=== PATIENT | male | born 1990 | race African-American/Black ===

== ENCOUNTER → 2018-07-22 17:55 | Emergency (ER) | payer SELFPAY ==
[~2018-07-22 17:55] MED LIST: Amoxicillin/Clavulanate TAB* 875 MG PO ONE; Azithromycin TAB* 250 MG PO ONE; Ciproflox/Dexameth OTIC.SUSP* 7.5 ML BTL LEFT EAR ONE; Ibuprofen TAB* 600 MG PO ONE; Iohexol 300* (CONTRAST) 10 ML SDV IV ONE
[2018-07-22 21:09] LABS: Hematocrit 42 % (42-52); Hemoglobin 13.6 g/dl (14.0-18.0); Mean Corpuscular HGB Conc 33 g/dl (31-36); Mean Corpuscular Hemoglobin 24 pg (27-31); Mean Platelet Volume 6.8 fL (7.4-10.4); Platelet Count 305 10^3/ul (150-450); Red Blood Count 5.67 10^6/ul (4.00-5.40); Red Cell Distribution Width 15 % (10.5-15); White Blood Count 11.5 10^3/ul (3.5-10.8)
[2018-07-22 21:18] LABS: EGFR Non-African American 95.1 (>60)
[2018-07-22 21:36] LABS: ABS Basophils 0.1 10^3/ul (0-0.2); ABS Eosinophils 0.3 10^3/ul (0-0.6); ABS Lymphocytes 1.9 10^3/ul (1.0-4.8); ABS Monocytes 1.3 10^3/ul (0-0.8); ABS Neutrophils 7.9 10^3/ul (1.5-7.7); ABS Nucleated RBC 0 10^3/ul; Eosinophil % 2.7 % (0-6); Lymphocyte % 16.1 % (25-47); Mean Corpuscular Volume 74 fL (80-94); Nucleated Red Blood Cells % 0.1
--- NOTE | 2018-07-22 22:23 | ED ---
Throat Pain/Nasal Congestion - HPI Summary HPI Summary: Patient complains of left ear pain 2 weeks. Pain described as intermittent, associated with headache and redness and swelling behind ear. Denies fever, cough, sore throat, CP, SOB, neck stiffness, N/V/D, abdominal pain, change in urine, change in BM. Medical history is none. No antipyretic today. - History of Current Complaint Chief Complaint: EDEarPain Time Seen by Provider: 07/22/18 19:45 Hx Obtained From: Patient Onset/Duration: Gradual Onset, Lasting Weeks Severity: Moderate Associated Signs And Symptoms: Positive: Negative Cough: None - Allergies/Home Medications Allergies/Adverse Reactions: Allergies Allergy/AdvReac Type Severity Reaction Status Date / Time No Known Allergies Allergy Verified 07/22/18 19:39 PMH/Surg Hx/FS Hx/Imm Hx Endocrine/Hematology History: Denies: Hx Diabetes Cardiovascular History: Denies: Hx Hypertension History: Denies: Hx Dialysis, Hx Renal Disease - Immunization History Immunizations Up to Date: Yes Infectious Disease History: No Infectious Disease History: Denies: Traveled Outside the [place] in Last 30 Days - Social History Alcohol Use: Occasionally Substance Use Type: Reports: Marijuana Substance Use Comment - Amount & Last Used: daily Smoking Status (MU): Never Smoked Tobacco Review of Systems Constitutional: Negative Eyes: Negative Positive: Ear Ache Cardiovascular: Negative Respiratory: Negative Gastrointestinal: Negative Genitourinary: Negative Musculoskeletal: Negative Skin: Negative Positive: Headache Psychological: Normal All Other Systems Reviewed And Are Negative: Yes Physical Exam - Summary Physical Exam Summary: Redness erythema and swelling to mastoid posterior to left ear. Mild redness to TM. Possible purulence in left ear canal. Triage Information Reviewed: Yes Vital Signs On Initial Exam: Initial Vitals Temp Pulse Resp BP Pulse Ox 99.8 F 95 16 126/78 98 07/22/18 18:01 07/22/18 18:01 07/22/18 18:01 07/22/18 18:01 07/22/18 18:01 Vital Signs Reviewed: Yes Appearance: Positive: Well-Appearing Skin: Positive: Warm Head/Face: Positive: Normal Head/Face Inspection Eyes: Positive: Normal ENT: Positive: TM red, Uvula midline. Negative: Tonsillar swelling, Tonsillar exudate, Trismus, Muffled voice, Hoarse voice Neck: Positive: Supple Respiratory/Lung Sounds: Positive: Clear to Auscultation Cardiovascular: Positive: Normal Abdomen Description: Positive: Nontender Musculoskeletal: Positive: Normal Neurological: Positive: Normal Psychiatric: Positive: Normal AVPU Assessment: Alert - Elian Coma Scale Best Eye Response: 4 - Spontaneous Best Motor Response: 6 - Obeys Commands Best Verbal Response: 5 - Oriented Coma Scale Total: 15 Diagnostics - Vital Signs Vital Signs Temp Pulse Resp BP Pulse Ox 07/22/18 18:01 99.8 F 95 16 126/78 98 - Laboratory Lab Results: Lab Results 07/22/18 07/22/18 07/22/18 Range/Units 20:50 20:50 20:50 WBC 11.5 H (3.5-10.8) 10^3/ul RBC 5.67 H (4.00-5.40) 10^6/ul Hgb 13.6 L (14.0-18.0) g/dl Hct 42 (42-52) % MCV 74 L (80-94) fL MCH 24 L (27-31) pg MCHC 33 (31-36) g/dl RDW 15 (10.5-15) % Plt Count 305 (150-450) 10^3/ul MPV 6.8 L (7.4-10.4) fL Neut % (Auto) 69.0 (38-83) % Lymph % (Auto) 16.1 L (25-47) % Graves % (Auto) 11.7 H (0-7) % Eos % (Auto) 2.7 (0-6) % Baso % (Auto) 0.5 (0-2) % Absolute Neuts (auto) 7.9 H (1.5-7.7) 10^3/ul Absolute Lymphs (auto) 1.9 (1.0-4.8) 10^3/ul Absolute Monos (auto) 1.3 H (0-0.8) 10^3/ul Absolute Eos (auto) 0.3 (0-0.6) 10^3/ul Absolute Basos (auto) 0.1 (0-0.2) 10^3/ul Absolute Nucleated RBC 0 10^3/ul Nucleated RBC % 0.1 Sodium 138 (135-145) mmol/L Potassium 3.8 (3.5-5.0) mmol/L Chloride 105 (101-111) mmol/L Carbon Dioxide 27 (22-32) mmol/L Anion Gap 6 (2-11) mmol/L BUN 10 (6-24) mg/dL Creatinine 0.95 (0.67-1.17) mg/dL Est GFR ( Amer) 115.1 (>60) Est GFR (Non-Af Amer) 95.1 (>60) BUN/Creatinine Ratio 10.5 (8-20) Glucose 94 (70-100) mg/dL Lactic Acid 1.0 (0.5-2.0) mmol/L Calcium 9.4 (8.6-10.3) mg/dL Total Bilirubin 1.00 (0.2-1.0) mg/dL AST 13 (13-39) U/L ALT 8 (7-52) U/L Alkaline Phosphatase 55 (34-104) U/L C-Reactive Protein 25.51 H (<8.01) mg/L Total Protein 7.6 (6.4-8.9) g/dL Albumin 4.6 (3.2-5.2) g/dL Globulin 3.0 (2-4) g/dL Albumin/Globulin Ratio 1.5 (1-3) Result Diagrams: 07/22/18 20:50 07/22/18 20:50 Lab Statement: Any lab studies that have been ordered have been reviewed, and results considered in the medical decision making process. EENT Course/Dx - Course Course Of Treatment: Patient complains of left ear pain 2 weeks. Pain described as intermittent, associated with headache and redness and swelling behind ear. Denies fever, cough, sore throat, CP, SOB, neck stiffness, N/V/D, abdominal pain, change in urine, change in BM. Medical history is none. No antipyretic today. Physical exam:Redness erythema and swelling to mastoid posterior to left ear. Mild redness to TM. Possible purulence in left ear canal. Vital signs within normal limits. CT soft tissue neck unremarkable. Patient has symptoms of otitis externa and otitis media. Rx for Ciprodex, Augmentin. - Diagnoses Provider Diagnoses: Ear pain, left Discharge - Sign-Out/Discharge Documenting (check all that apply): Patient Departure - Discharge Plan Condition: Stable Disposition: HOME Prescriptions: Amoxicillin/Clavulanate TAB* [Augmentin TAB 875*] 875 mg PO BID #20 tab Patient Education Materials: Earache (ED) Forms: *Gen. Provider Communication Referrals: No Primary Care Phys,NOPCP [Primary Care Provider] - [facility] [Outside] Additional Instructions: Place antibiotic drops in the left ear as directed. Take antibiotics by mouth as directed. Follow-up with primary care. Return to the ED for any new or worsening symptoms - Billing Disposition and Condition Condition: STABLE Disposition: Home
[2018-07-22 22:48] VITALS: BP 114/77
== END | disposition home or self-care (01) ==
LOC: ED 17:55
DX: H92.02 Otalgia, left ear (principal); R51 Headache
CPT/HCPCS: 36415; 70491; 80053; 83605; 85025; 86140; 99282; A9270-GY; Q9967